=== PATIENT | male | born 1950 | race Caucasian/White ===

== ENCOUNTER 2018-11-17 10:00 | Inpatient (IN) | payer OTHER ==
--- NOTE | 2018-11-17 10:06 | PDOC ---
History of Present Illness - General Chief Complaint: Urinary Problem Stated Complaint: POSS UTI Time Seen by Provider: 11/17/18 10:06 - History of Present Illness Initial Comments: 68yo M with PMH of SULMA SPARROW, hand deformity presenting from [facility] for hypoxia. His aide is at the bedside providing collateral history. When she took his vitals this morning, she noted him to be hypoxic at 88% and a nurse recommended sending him to the ED for further evaluation. Patient is usually more active but has been less so in the past couple days. The aide notes he has been urinating more frequently and may have an infection. She also adds that it was noticed he had a swollen left ankle. The aide notes that he also looks pale. No fevers noted at home. PCP: Dr. Estefany Ward Past History - Past Medical History Allergies/Adverse Reactions: Allergies Allergy/AdvReac Type Severity Reaction Status Date / Time No Known Allergies Allergy Verified 11/21/13 23:09 Home Medications: Ambulatory Orders Cholecalciferol (Vitamin D3) [Vitamin D3] 1,000 unit PO DAILY 11/21/13 Paroxetine HCl [Paxil -] 10 mg PO DAILY 11/21/13 Clindamycin [Cleocin -] 300 mg PO TID #21 capsule 11/22/13 - Suicide/Smoking/Psychosocial Hx Smoking History: Never smoked Review of Systems - Review of Systems Able to Perform ROS?: No (communication inadequate) *Physical Exam - Physical Exam Comments: General: Awake, alert, in no acute distress Head: No signs of trauma Eyes: EOMI, sclera anicteric ENT: Moist mucus membranes Neck: Normal ROM, supple Lungs: Lungs clear, Normal breath sounds Cardio: Regular rhythm, S1 and S2 present Abdomen: Grimacing noted upon palpation of abdomen, most focal to suprapubic area. Distended. No CVA tenderness. Extremities: Webbing of fingers, Distal pulses present. No grimacing noted upon palpation of calves. Left ankle appearing larger than right. SKIN: Warm, Dry, normal turgor Neurologic: Able to follow some commands. ED Treatment Course - LABORATORY CBC & Chemistry Diagram: 11/18/18 06:10 11/18/18 00:25 Medical Decision Making - Medical Decision Making 68yo M with PMH of SULMA SPARROW, hand deformity presenting from [facility] for hypoxia. Patient is febrile, tachycardic, and hypoxic Septic workup ordered 1g Ofirmev 2L NS 11/17/18 10:36 EKG: rate 120, QTc 438, sinus tachycardia Have not been able to get urine sample yet. 11/17/18 11:12 CBC WBC 37.7 K/mm3 (4.0-10.0) H* 11/17/18 10:55 RBC 4.03 M/mm3 (4.00-5.60) 11/17/18 10:55 Hgb 12.0 GM/dL (11.7-16.9) 11/17/18 10:55 Hct 36.4 % (35.4-49) 11/17/18 10:55 MCV 90.3 fl (80-96) 11/17/18 10:55 MCH 29.8 pg (25.7-33.7) 11/17/18 10:55 MCHC 33.0 g/dl (32.0-35.9) 11/17/18 10:55 RDW 13.7 % (11.9-15.9) 11/17/18 10:55 Plt Count 539 K/MM3 (134-434) H 11/17/18 10:55 MPV 7.4 fl (7.5-11.1) L 11/17/18 10:55 Absolute Neuts (auto) 35.8 K/mm3 (1.5-8.0) H 11/17/18 10:55 Neutrophils % 95.0 % (42.8-82.8) H 11/17/18 10:55 Neutrophils % (Manual) 96.0 % (42.8-82.8) H 11/17/18 10:55 Band Neutrophils % 0.0 % 11/17/18 10:55 Lymphocytes % 1.8 % (8-40) L 11/17/18 10:55 Lymphocytes % (Manual) 0.0 % (8-40) L 11/17/18 10:55 Monocytes % 2.9 % (3.8-10.2) L 11/17/18 10:55 Monocytes % (Manual) 4 % (3.8-10.2) 11/17/18 10:55 Eosinophils % 0.0 % (0-4.5) 11/17/18 10:55 Eosinophils % (Manual) 0.0 % (0-4.5) 11/17/18 10:55 Basophils % 0.3 % (0-2.0) 11/17/18 10:55 Basophils % (Manual) 0.0 % (0-2.0) 11/17/18 10:55 Myelocytes % (Man) 0 % (0-2) 11/17/18 10:55 Promyelocytes % (Man) 0 % (0-2) 11/17/18 10:55 Blast Cells % (Manual) 0 % (0-0) 11/17/18 10:55 Nucleated RBC % 0 % (0-0) 11/17/18 10:55 Metamyelocytes 0 % (0-2) 11/17/18 10:55 Hypochromia 0 11/17/18 10:55 Platelet Estimate Increased 11/17/18 10:55 Polychromasia 1+ 11/17/18 10:55 Poikilocytosis 0 11/17/18 10:55 Anisocytosis 1+ 11/17/18 10:55 Microcytosis 1+ 11/17/18 10:55 Macrocytosis 0 11/17/18 10:55 WBC 37.7 with unknown baseline No anemia Vanc, Zosyn 11/17/18 11:35 First lactate 2.5 Chemistries hemolyzed Re-ordered Still have not collected UA 11/17/18 12:54 UA collected via straight cath, foul-smelling and cloudy 11/17/18 14:01 CMP Sodium 129 mmol/L (136-145) L 11/17/18 13:03 Potassium 4.1 mmol/L (3.5-5.1) 11/17/18 13:03 Chloride 96 mmol/L (98-107) L 11/17/18 13:03 Carbon Dioxide 20 mmol/L (21-32) L 11/17/18 13:03 Anion Gap 13 MMOL/L (8-16) 11/17/18 13:03 BUN 62.2 mg/dL (7-18) H 11/17/18 13:03 Creatinine 2.4 mg/dL (0.55-1.3) H 11/17/18 13:03 Est GFR (CKD-EPI)AfAm 31.40 11/17/18 13:03 Est GFR (CKD-EPI)NonAf 27.09 11/17/18 13:03 Random Glucose 147 mg/dL (74-106) H 11/17/18 13:03 Lactic Acid 1.7 mmol/L (0.4-2.0) 11/17/18 13:03 Calcium 8.2 mg/dL (8.5-10.1) L 11/17/18 13:03 Total Bilirubin 1.4 mg/dL (0.2-1) H 11/17/18 13:03 AST 33 U/L (15-37) 11/17/18 13:03 ALT 22 U/L (13-61) 11/17/18 13:03 Alkaline Phosphatase 90 U/L (45-117) 11/17/18 13:03 Troponin I < 0.02 ng/ml (0.00-0.05) 11/17/18 13:03 Total Protein 5.5 g/dl (6.4-8.2) L 11/17/18 13:03 Albumin 2.0 g/dl (3.4-5.0) L 11/17/18 13:03 Lipase 24 U/L (73-393) L 11/17/18 13:03 Hyponatremic Cr=2.4 (unknown baseline) Tpn undetectable Second lactate 1.7 UA positive for infection, 3+ LE, 268 WBC, 279 bacteria 11/17/18 14:03 Duplex negative for DVT: "There is no evidence of deep venous thrombosis within the common, deep and superficial femoral veins, as well as the popliteal and posterior tibial veins. The greater saphenous vein is also patent. These veins are fully compressible, as well. IMPRESSION: No evidence of deep venous thrombosis. " Discussed case with Dr. Hummel who accepted patient for med/surg admission. Placed consult for Dr. Dickinson per her request. 11/17/18 14:10 Bedside US shows significant hydronephrosis bilaterally with r. renal cyst. CTAP ordered without IV contrast given elevation in creatinine. 11/17/18 14:20 Abnormal findings on CTAP: "Comparison: Renal and bladder ultrasound 08/15/2017. Contiguous transaxial images were obtained from the diaphragmatic domes and pubic symphysis without the administration of oral and IV contrast. Sagittal and coronal reconstructions were performed. Study limited by patient condition. Mild perihepatic and splenic ascites. Lungs: Mild scarring and/or atelectatic changes. Small pericardial effusion. Bone: Mild osteopenia, degenerative changes and scoliosis with fusion of both SI joints. Liver: Hepatomegaly. Gallbladder: Distended gallbladder with bile but no calcified stones seen. Biliary tree: Negative. Spleen: Negative. Pancreas: Negative. Adrenals: Adrenal hyperplasia. Kidneys: Bilateral extensive parapelvic cysts. Superimposed hydronephrosis. Also be present. Pelvis: There is a significantly thick walled bladder. There are large cystic structures within the pelvis as suggested on prior ultrasound. Left-sided lesion measured 7.5 x 5.8 cm and currently measures 9.2 x 6.6 cm. The inferior lesion previously measured 7.9 x 6.2 cm and currently 9.3 x 7.5 cm. The right lesion measured 2.2 x 2.1 cm and currently 2.4 x 2.1 cm. A presumed new fluid-filled structure to the right of the thickened right bladder wall with an air-fluid level measures approximately 9.0 x 3.5 cm. Is not clear if it is another cystic structure or dilated loop of bowel. Additional evaluation is needed. It is not clear if they are bladder diverticula or other cystic pelvic lesions. The bladder as well as all of these lesions contain air. This could be related to recent instrumentation (although there is a moderate amount of air) versus emphysematous cystitis or a fistula. Additional evaluation suggested. Bowel: There are thick walled small bowel loops in the midabdomen without obvious obstruction. The right colon is not distended and contains air. The left colon shows moderate wall thickening. There is extraluminal air in the right lateral lower flank which could be associated with the cystic lesion to the right of the bladder and could represent a perforated loop of bowel or other structure. There is also a linear opacity measuring 13 mm in length in the area of these abnormalities and a foreign body cannot be excluded. Other: Hiatal hernia with air. Bilateral inguinal hernias with fat, greater on the left and with fluid on the left. Impression: Study is significantly limited by patient condition. The findings are similar to the prior exam except that the left cystic and inferior lesions are increased in size. There is now a fourth structure adjacent to the bladder on the right which could be another cystic lesion or a distended fluid- filled loop of bowel containing a linear foreign body. Adjacent to this there is extraluminal air in the right flank and in the right pelvis. This would suggest a perforation. Small bowel bowel loops in the midabdomen show wall thickening and wall thickening is seen in the left colon as well although the cecum appears grossly unremarkable. Other findings as above. Clinical correlation advised. " Pages sent to urology and general surgery Discussed case with Dr. Gonzalez who is currently evaluating the patient 11/17/18 17:46 Dr. Gonzalez spoke with Dr. Costello, urologist, who recommended monae placement. Dr. Bruce placed monae which drained 1500cc of turbid urine 11/17/18 18:35 *DC/Admit/Observation/Transfer Diagnosis at time of Disposition: UTI (urinary tract infection) Sepsis Qualifiers: Sepsis type: sepsis due to unspecified organism Qualified Code(s): A41.9 - Sepsis, unspecified organism - Discharge Dispostion Condition at time of disposition: Guarded Decision to Admit order: Yes - Referrals - Patient Instructions - Post Discharge Activity
[2018-11-17 10:09] VITALS: BMI 27.4
[2018-11-17] MEDS ORDERED: ACETAMINOPHEN 1000 MG/100 ML VIAL (NON FORMULARY) IVPB ONE (10:34)
[2018-11-17] MEDS ORDERED: SODIUM CHLORIDE 2,000 ML IV STA (10:34)
[2018-11-17] MEDS ORDERED: ACETAMINOPHEN INJECTION 100 ML IVPB ONE (11:04)
[2018-11-17 11:11] LABS: VENOUS PC02 27.4 mmHg (41-51); VENOUS PH 7.48 (7.31-7.41); VENOUS PO2 49.7 mmHg (30-40)
[2018-11-17 11:18] LABS: BASO % 0.3 % (0-2.0); HEMATOCRIT 36.4 % (35.4-49); LYMPH % 1.8 % (8-40); MCH 29.8 pg (25.7-33.7); MEAN CELL VOLUME 90.3 fl (80-96); MEAN PLT VOLUME 7.4 fl (7.5-11.1); MONO % 2.9 % (3.8-10.2); PLATELET COUNT 539 K/MM3 (134-434); RBC 4.03 M/mm3 (4.00-5.60); RDW 13.7 % (11.9-15.9)
[2018-11-17 11:28] LABS: WHITE BLOOD COUNT 37.7 K/mm3 (4.0-10.0)
[2018-11-17 11:49] LABS: INR 1.54 (0.83-1.09); PROTHROMBIN TIME (PATIENT) 18.2 SEC (9.7-13.0)
[2018-11-17 11:52] LABS: ACTIVATED PTT 29.2 SECONDS (25.2-36.5)
[2018-11-17] MEDS ORDERED: PIPERACILLIN/TAZOB 4.5 GM 4.5 GM in DEXTROSE 5%-WATER 100 ML IVPB ONE (11:55)
[2018-11-17] MEDS ORDERED: VANCOMYCIN 1,000 MG in DEXTROSE 5%-WATER - 250 ML IVPB ONE (11:55)
[2018-11-17] MEDS ORDERED: PIPERACILLIN/TAZOB 4.5 GM 4.5 GM/100 ML BAG IVPB ONE (12:03)
[2018-11-17] MEDS ORDERED: VANCOMYCIN 1 GRAM (PRE-DOCKED) 1,000 MG/250 ML BAG IVPB ONE (12:03)
[2018-11-17 12:40] LABS: ANISOCYTOSIS 1+; MACROCYTOSIS 0; PLATELET ESTIMATE INCREASED
[2018-11-17 13:18] LABS: EPI CELLS 16.1 /HPF (0-5/HPF); HYALINE CASTS 68 /lpf (0-8); PH,URINE 6.5 (5.0-8.0); URINE APPEARANCE TURBID; URINE BACTERIA 279.1 /hpf (NEGATIVE); URINE BILIRUBIN NEGATIVE (NEGATIVE); URINE COLOR YELLOW; URINE GLUCOSE (UA) NEGATIVE (NEGATIVE); URINE KETONE NEGATIVE (NEGATIVE); URINE LEUK ESTERASE 3+ (NEGATIVE); URINE NITRITE NEGATIVE (NEGATIVE); URINE PROTEIN 2+ (NEGATIVE); URINE UROBILINOGEN 0.2 mg/dL (0.2-1.0); URINE WBC 268 /hpf (0-5)
[2018-11-17 13:34] LABS: URINE RBC 29.9 /hpf (0-4)
[2018-11-17 13:35] LABS: YEAST NONE SEEN (NEGATIVE)
[2018-11-17 13:41] LABS: BILIRUBIN,TOTAL 1.4 mg/dL (0.2-1); BLOOD UREA NITROGEN 62.2 mg/dL (7-18); CALCIUM 8.2 mg/dL (8.5-10.1); CREATININE 2.4 mg/dL (0.55-1.3); POTASSIUM 4.1 mmol/L (3.5-5.1); TOT PROT 5.5 g/dl (6.4-8.2)
--- NOTE | 2018-11-17 14:01 | PDOC ---
Documentation entered by Isabel Laura SCRIBE, acting as scribe for Hannah Oscar MD. Hannah Oscar MD: This documentation has been prepared by the scribe, Isabel Laura SCRIBE, under my direction and personally reviewed by me in its entirety. I confirm that the documentation accurately reflects all work, treatment, procedures, and medical decision making performed by me. Attending Attestation - Resident Resident Name: Whit Lee - ED Attending Attestation I have performed the following: I have examined & evaluated the patient, The case was reviewed & discussed with the resident, I agree w/resident's findings & plan, Exceptions are as noted - HPI HPI: 11/17/18 11:44 The patient is a 68-year-old male from [facility], with a past medical history of MR, HLD, and a LT hand deformity, who presents to the ED for hypoxia. Patient's caregiver is at bedside and is providing history. She states that she took his vitals this morning and noted his O2 saturation at 88%. Nurse at the facility prompted her to send to the patient to the ER for further evaluation. She reports that the patient has been less active in the past few days compared to his baseline, has been urinating more frequently, and has new onset of LT ankle swelling. HPI is limited due to patient's clinical condition. Allergies: NKA PCP: Dr. Estefany Ward - Physicial Exam PE: 11/17/18 13:39 agree with resident exam - Medical Decision Making 11/17/18 13:58 68yo M hx MR presents to the ED with lethargy, urinary frequency found to have fever 101, leukocytosis to 37, lacitc 2.5 and UTI Pt covered empirically with vanc/zosyn, given 2L fluids Plan for admission for further IV abx, observation 11/17/18 14:06 Mild bowel dilation during bedside POCUS, +abd distention Will obtain dry CTAP to eval for ileus vs obstruction as wrapping machine tender elevated Case disucssed with Dr. Hummel by Dr. Lee, pt accepted for admission Case discussed in detail with admitting physician including history, physical exam and ancillary studies. Admitting physician has assumed care for the patient, will follow all pending diagnostics and will complete the evaluation and treatment. 11/17/18 16:54 CTAP with possible perforation? Call put out to Dr. Hummel to discuss Will consult surgery and urology
--- NOTE | 2018-11-17 15:24 | EKG ---
Test Reason : Blood Pressure : / mmHG Vent. Rate : 120 BPM Atrial Rate : 120 BPM P-R Int : 096 ms QRS Dur : 080 ms QT Int : 310 ms P-R-T Axes : 068 084 049 degrees QTc Int : 438 ms SINUS TACHYCARDIA WITH SHORT CA WITH PREMATURE ATRIAL COMPLEXES POSSIBLE LEFT ATRIAL ENLARGEMENT BORDERLINE ECG WHEN COMPARED WITH ECG OF 06-APR-2002 09:08, PREMATURE ATRIAL COMPLEXES ARE NOW PRESENT CA INTERVAL HAS DECREASED Confirmed by MD Miguel, Alan ([id number]) on 11/17/2018 3:24:44 PM Referred By: Confirmed By:Alan Rivera MD
--- NOTE | 2018-11-17 17:08 | HP ---
Admitting History and Physical - Primary Care Physician PCP: Estefany Ward - Admission Chief Complaint: sepsis History of Present Illness: ER History - History of Present Illness Initial Comments: 68yo M with PMH of SULMA SPARROW, hand deformity presenting from [facility] for hypoxia. His aide is at the bedside providing collateral history. When she took his vitals this morning, she noted him to be hypoxic at 88% and a nurse recommended sending him to the ED for further evaluation. Patient is usually more active but has been less so in the past couple days. The aide notes he has been urinating more frequently and may have an infection. She also adds that it was noticed he had a swollen left ankle. The aide notes that he also looks pale. No fevers noted at home. PCP: Dr. 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 (severe mental retardation) - Smoking History Smoking history: Never smoked Have you smoked in the past 12 months: No - Alcohol/Substance Use Hx Alcohol Use: No Home Medications - Allergies Allergies/Adverse Reactions: Allergies Allergy/AdvReac Type Severity Reaction Status Date / Time No Known Allergies Allergy Verified 11/21/13 23:09 - Home Medications Home Medications: Ambulatory Orders Cholecalciferol (Vitamin D3) [Vitamin D3] 1,000 unit PO DAILY 11/21/13 Paroxetine HCl [Paxil -] 10 mg PO DAILY 11/21/13 Clindamycin [Cleocin -] 300 mg PO TID #21 capsule 11/22/13 Review of Systems - Review of Systems Constitutional: reports: Chills, Fever, Lethargy Physical Examination Vital Signs: Vital Signs Temperature 100.0 F H 11/17/18 15:20 Pulse Rate 91 H 11/17/18 15:20 Respiratory Rate 18 11/17/18 15:20 Blood Pressure 101/60 11/17/18 15:20 O2 Sat by Pulse Oximetry (%) 93 L 11/17/18 15:20 Constitutional: Yes: Mild Distress Cardiovascular: Yes: Regular Rate and Rhythm, Tachycardia Respiratory: Yes: Diminished Gastrointestinal: Yes: Normal Bowel Sounds, Soft, Tenderness Edema: Yes Labs: CBC, BMP 11/17/18 10:55 11/17/18 13:03 Imaging - Results Chest X-ray: Image Reviewed EKG: Image Reviewed Problem List - Problems (1) Acute renal failure Code(s): N17.9 - ACUTE KIDNEY FAILURE, UNSPECIFIED (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
--- NOTE | 2018-11-17 18:18 | CONSULT ---
Consult Consult Specialty:: General Surgery Referred by:: Whit Lee Reason for Consultation:: CT abnormalities, dilated bowel loop? - History of Present Illness Chief Complaint: pt cannot offer History of Present Illness: 68yo severely mentally retarded M with unknown complete history, resident of a facility, was brought to ER for hypoxia today, increased frequency of urination (?infection) and L ankle swelling. He is unable to offer any history, nor is the aide at bedside able to give much information. History is taken from the chart and his accompanying records. Had a colonoscopy in 2006 apparently. In ER , he was febrile, tachycardic and with low BPs, lowest noted 80s systolic earlier this afternoon. Labs significant for wbc 37, elevated BUN/Cr, lactate 2.5 hydrated down to 1.7, low Na and Cl, bili 1.4, INR 1.5, and straight-cathed UA (prior to CT) positive for UTI (urine reportedly cloudy and foul-smelling). Surgery was asked to evaluate. He is seen and examined in ER holding, with aide present. He is able to position on his back for the exam. He vocalizes occasionally and reacted to pain with palpation of his lower abdomen, but was not verbal. He was initially lying in the position. Per his records, sister Michael Rodgers is his next of kin/decision-maker. Dr. Bruce, my partner, was also present for the exam. - History Source History Provided By: Medical Record, Transfer Record Limitations to Obtaining History: Clinical Condition - Past Medical History OVEN TENDER: Yes: Other (severe mental retardation, hearing loss) Cardio/Vascular: Yes: Mitral Insufficiency Psych: Yes: Anxiety ENT: Yes: Other (hearing loss (uses hearing aids)) Additional Medical History: parapelvic cysts on previous US? - Past Surgical History Past Surgical History: Yes: Colonoscopy (2006) Additional Surgical History: unknown - two right groin scars, one left sided - Alcohol/Substance Use Hx Alcohol Use: No History of Substance Use: reports: None - Smoking History Smoking history: Never smoked Have you smoked in the past 12 months: No - Social History Usual Living Arrangement: Senior Living ADL: Support Services Home Medications - Allergies Allergies/Adverse Reactions: Allergies Allergy/AdvReac Type Severity Reaction Status Date / Time No Known Allergies Allergy Verified 11/21/13 23:09 - Home Medications Home Medications: Ambulatory Orders Cholecalciferol (Vitamin D3) [Vitamin D3] 1,000 unit PO DAILY 11/21/13 Paroxetine HCl [Paxil -] 10 mg PO DAILY 11/21/13 Clindamycin [Cleocin -] 300 mg PO TID #21 capsule 11/22/13 Family Disease History - Family Disease History Family History: Unable to Obtain (pt cannot offer) Review of Systems Unable to obtain ROS, reason: severe MR/pt cannot offer Physical Exam Vital Signs: Vital Signs Temperature 99.9 F H 11/17/18 17:44 Pulse Rate 93 H 11/17/18 17:44 Respiratory Rate 18 11/17/18 17:44 Blood Pressure 102/55 L 11/17/18 17:44 O2 Sat by Pulse Oximetry (%) 92 L 11/17/18 17:44 Constitutional: Yes: Well Nourished, Calm, Mild Distress Eyes: Yes: Conjunctiva Clear, EOM Intact HENT: Yes: Atraumatic. No: Drooling Neck: Yes: Supple, Trachea Midline Cardiovascular: Yes: Tachycardia. No: Pulse Irregular Respiratory: Yes: Regular, CTA Bilaterally, On Nasal O2 Gastrointestinal: Yes: Distention (firm, softer in uppermost abdomen), Hypoactive Bowel Sounds, Tenderness (lower abdomen bilaterally and suprapubic), Other (initially, crepitus palpable along right lateral/lower abdomen/flank; no erythema or skin changes; well-healed scars - 2 in right groin, one in left extending to pubis) ...Rectal Exam: Yes: Deferred Renal/: Yes: Bladder Distention, Polyuria (Tijerina placed by my partner (Dr. Bruce) with 1500 turbid urine output) Extremities: Yes: Deformity (bilateral club hands and feet). No: Cool, Cyanosis Integumentary: No: Jaundice, Rash Neurological: Yes: Alert, Pre-Existing Deficit (severe MR), Other (vocalizes and indicates pain to abdominal palpation as above, not verbal for me) Psychiatric: Yes: Alert. No: Agitated Labs: CBC, BMP 11/17/18 10:55 11/17/18 13:03 CMP Sodium 129 mmol/L (136-145) L 11/17/18 13:03 Potassium 4.1 mmol/L (3.5-5.1) 11/17/18 13:03 Chloride 96 mmol/L (98-107) L 11/17/18 13:03 Carbon Dioxide 20 mmol/L (21-32) L 11/17/18 13:03 Anion Gap 13 MMOL/L (8-16) 11/17/18 13:03 BUN 62.2 mg/dL (7-18) H 11/17/18 13:03 Creatinine 2.4 mg/dL (0.55-1.3) H 11/17/18 13:03 Est GFR (CKD-EPI)AfAm 31.40 11/17/18 13:03 Est GFR (CKD-EPI)NonAf 27.09 11/17/18 13:03 Random Glucose 147 mg/dL (74-106) H 11/17/18 13:03 Lactic Acid 1.7 mmol/L (0.4-2.0) 11/17/18 13:03 Calcium 8.2 mg/dL (8.5-10.1) L 11/17/18 13:03 Total Bilirubin 1.4 mg/dL (0.2-1) H 11/17/18 13:03 AST 33 U/L (15-37) 11/17/18 13:03 ALT 22 U/L (13-61) 11/17/18 13:03 Alkaline Phosphatase 90 U/L (45-117) 11/17/18 13:03 Troponin I < 0.02 ng/ml (0.00-0.05) 11/17/18 13:03 Total Protein 5.5 g/dl (6.4-8.2) L 11/17/18 13:03 Albumin 2.0 g/dl (3.4-5.0) L 11/17/18 13:03 Lipase 24 U/L (73-393) L 11/17/18 13:03 lact down from 2.5 INR, PTT INR 1.54 (0.83-1.09) H 11/17/18 10:55 Urine Test Results Urine Color Yellow 11/17/18 12:53 Urine Appearance Turbid 11/17/18 12:53 Urine pH 6.5 (5.0-8.0) 11/17/18 12:53 Ur Specific [place] 1.010 (1.010-1.035) 11/17/18 12:53 Urine Protein 2+ (NEGATIVE) H 11/17/18 12:53 Urine Glucose (UA) Negative (NEGATIVE) 11/17/18 12:53 Urine Ketones Negative (NEGATIVE) 11/17/18 12:53 Urine Blood 2+ (NEGATIVE) H 11/17/18 12:53 Urine Nitrite Negative (NEGATIVE) 11/17/18 12:53 Urine Bilirubin Negative (NEGATIVE) 11/17/18 12:53 Ur Leukocyte Esterase 3+ (NEGATIVE) H 11/17/18 12:53 UA + bacteria Imaging - Results Cat Scan: Report Reviewed, Image Reviewed (images reviewed - large pelvic cystic structures with air and fluid, air in right flank abdominal wall/RLQ adjacent to right-most cystic structure, thick-walled bladder, hyperdensity/?FB in right cystic structure (??previous stent??), hydronephrosis with parapelvic cysts, few SB loops with mildly thickened palmer, L colon with some wall thickening, R colon ok, no bowel obstruction apparent) Ultrasound: Report Reviewed (from 08/24 - pelvic cystic structures present, CT today with one additional one now noted) Problem List - Problems (1) Emphysematous cystitis Code(s): N30.80 - OTHER CYSTITIS WITHOUT HEMATURIA (2) Abnormal urologic system diagnostic imaging Code(s): R93.49 - ABN RADLGC FINDINGS ON DX IMAGING OF OTHER URINARY ORGANS (3) Urinary retention Code(s): R33.9 - RETENTION OF URINE, UNSPECIFIED (4) Parapelvic renal cyst Code(s): N28.1 - CYST OF KIDNEY, ACQUIRED (5) Severe mental handicap Code(s): F72 - SEVERE INTELLECTUAL DISABILITIES (6) 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 Costello (Uro) by phone agreed with Tijerina placement and IV antibiotics for now he will see the patient need medical optimization - correct electrolytes, IV hydration/resuscitation maintain hemodynamics consider checking PTT, send T&S ID consultation to continue abx (Vanc, Zosyn given in ER) no acute general surgical issues at this time will f/u urology consult and check on pt tomorrow
--- NOTE | 2018-11-17 21:26 | PN ---
Progress Note (short form) - Note Progress Note: ID CONSULT DICTATED
[2018-11-17] MEDS: ACETAMINOPHEN 325 MG TABLET (FP) PO PRN (21:47)
--- NOTE | 2018-11-17 23:36 | CONS ---
DATE OF CONSULTATION: DATE OF DICTATION: 11/17/2018 INFECTIOUS DISEASE CONSULTATION HISTORY OF PRESENT ILLNESS: History was obtained from the chart, as patient cannot give a history secondary to his mental condition. He is a 68-year-old male with history of mental retardation, resident of a facility who was brought to the emergency room after he was noted to be hypoxemic at his facility. According to the notes, he was noted to have an O2 saturation of 88%. In addition, staff had reported that he had not been as interactive as usual and had been more lethargic and somnolent over the past several days. He was also noted to have urinary frequency and left ankle swelling. He was evaluated in the emergency room where a specimen for urine was obtained and was cloudy and foul smelling. He was found to have a fever of 101.1 and a white blood cell count of 37.7 thousand. A CAT scan of the abdomen and pelvis as well as sonogram was obtained. CAT scan of the abdomen showed cystic structures adjacent to the bladder, small bowel loops with wall thickening as well as wall thickening in the left colon. He was empirically treated with Zosyn and admitted to the floor. He was seen in consultation by surgery. At the present time he is awake, however he is unable to offer any history secondary to his mental retardation. No reports of shaking chills, labored breathing, cough, vomiting, or diarrhea. PAST MEDICAL HISTORY: Positive for mental retardation and hyperlipidemia. ALLERGIES: No known allergies. LABORATORY DATA: White count 37.7, with 91 neutrophils, 1 lymphocyte, 2 monocytes. Hematocrit 36.4, platelet count 539. BUN 62, creatinine 2.4, sodium 129, lactic acid 2.5. Chest x-ray negative. Urinalysis 268 white cells. PHYSICAL EXAMINATION: General: On exam, he is awake lying on his left side on the stretcher. He is unable to converse. Vital signs: Temperature 99.9, T-max 101.1, blood pressure 102/55, pulse 93 regular, respirations 18 per minute. HEENT: Sclerae anicteric. Cardiovascular: Heart sounds S1, S2. Lungs: Grossly clear. Abdomen: Soft, there is some mild tenderness to deep palpation. Extremities: Negative for edema. Deformity present of the left hand. IMPRESSION: 1. Fever, marked leukocytosis, rule out sepsis. 2. Urinary tract infection, rule out sepsis secondary to urinary tract focus. 3. Colitis. 4. Lactic acidosis. 5. Azotemia. 6. Hyponatremia. Cultures have been obtained. Continue empiric coverage of gastrointestinal/genitourinary pathogens with Zosyn. Urology evaluation. Further recommendations pending cultures, will follow. Thank you for the kind referral. BRYANT GARDNER M.D. RAPHAEL/[id number]
[2018-11-18] MEDS ORDERED: ACETAMINOPHEN 325 MG TABLET (FP) ONE (00:12)
[2018-11-18] MEDS ORDERED: ACETAMINOPHEN 325 MG TABLET (FP) PO ONE (00:22)
--- NOTE | 2018-11-18 00:30 | HOSP ---
Subjective - Review of Symptoms Events since last encounter: Hospitalist Encounter Notified by RN that the patient is tachycardic, tachypnic and febrile, was asked to evaluate. Subjective: Arrived to bedside, patient is awake, non-verbal baseline, diaphoretic, tachypneic, skin cool to touch. Plan Stat EKG Stat Lactic Acid, CBC, CMP Stat FS Stat ABG Tylenol 325mg po Physical Examination Vital Signs: Vital Signs Temperature 102.8 F H 11/17/18 23:17 Pulse Rate 152 H 11/17/18 23:17 Respiratory Rate 46 H 11/17/18 23:28 Blood Pressure 124/70 11/17/18 23:17 O2 Sat by Pulse Oximetry (%) 94 L 11/17/18 23:28 Constitutional: Yes: Moderate Distress Eyes: Yes: Conjunctiva Clear HENT: Yes: WNL, Atraumatic, Normocephalic Neck: Yes: WNL, Supple, Trachea Midline Cardiovascular: Yes: Tachycardia, S1, S2 Respiratory: Yes: Accessory Muscle Use, Diminished, On Nasal O2, Tachypnea Gastrointestinal: Yes: Distention, Hypoactive Bowel Sounds Renal/: Yes: [place] Present Extremities: Yes: Other (club hands/feet) Edema: No Peripheral Pulses WNL: Yes Neurological: Yes: Alert, Pre-Existing Deficit (MR) Psychiatric: Yes: Alert Labs: CBC, BMP 11/17/18 10:55 11/17/18 13:03 Laboratory Results - last 24 hr 11/17/18 11/17/18 11/17/18 10:55 10:55 10:55 WBC 37.7 H* RBC 4.03 Hgb 12.0 Hct 36.4 MCV 90.3 MCH 29.8 MCHC 33.0 RDW 13.7 Plt Count 539 H MPV 7.4 L Absolute Neuts (auto) 35.8 H Neutrophils % 95.0 H Neutrophils % (Manual) 96.0 H Band Neutrophils % 0.0 Lymphocytes % 1.8 L Lymphocytes % (Manual) 0.0 L Monocytes % 2.9 L Monocytes % (Manual) 4 Eosinophils % 0.0 Eosinophils % (Manual) 0.0 Basophils % 0.3 Basophils % (Manual) 0.0 Myelocytes % (Man) 0 Promyelocytes % (Man) 0 Blast Cells % (Manual) 0 Nucleated RBC % 0 Metamyelocytes 0 Hypochromia 0 Platelet Estimate Increased Polychromasia 1+ Poikilocytosis 0 Anisocytosis 1+ Microcytosis 1+ Macrocytosis 0 PT with INR 18.20 H INR 1.54 H PTT (Actin FS) 29.2 VBG pH 7.48 H POC VBG pCO2 27.4 L POC VBG pO2 49.7 H VBG HCO3 20.0 L VBG O2 Sat (Izzy) 80.4 H VBG Base Excess -2.1 L Sodium Potassium Chloride Carbon Dioxide Anion Gap BUN Creatinine Est GFR (CKD-EPI)AfAm Est GFR (CKD-EPI)NonAf POC Glucometer Random Glucose Lactic Acid Calcium Total Bilirubin AST ALT Alkaline Phosphatase Troponin I Total Protein Albumin Lipase Urine Color Urine Appearance Urine pH Ur Specific [place] Urine Protein Urine Glucose (UA) Urine Ketones Urine Blood Urine Nitrite Urine Bilirubin Urine Urobilinogen Ur Leukocyte Esterase Urine WBC (Auto) Urine RBC (Auto) Urine Casts (Auto) U Pathogenic Cast Auto U Epithel Cells (Auto) Urine Bacteria (Auto) Urine Yeast (Auto) 11/17/18 11/17/18 11/17/18 10:55 10:55 10:55 WBC RBC Hgb Hct MCV MCH MCHC RDW Plt Count MPV Absolute Neuts (auto) Neutrophils % Neutrophils % (Manual) Band Neutrophils % Lymphocytes % Lymphocytes % (Manual) Monocytes % Monocytes % (Manual) Eosinophils % Eosinophils % (Manual) Basophils % Basophils % (Manual) Myelocytes % (Man) Promyelocytes % (Man) Blast Cells % (Manual) Nucleated RBC % Metamyelocytes Hypochromia Platelet Estimate Polychromasia Poikilocytosis Anisocytosis Microcytosis Macrocytosis PT with INR INR PTT (Actin FS) VBG pH POC VBG pCO2 POC VBG pO2 VBG HCO3 VBG O2 Sat (Izzy) VBG Base Excess Sodium Cancelled Potassium Cancelled Chloride Cancelled Carbon Dioxide Cancelled Anion Gap Cancelled BUN Cancelled Creatinine Cancelled Est GFR (CKD-EPI)AfAm Cancelled Est GFR (CKD-EPI)NonAf Cancelled POC Glucometer Random Glucose Cancelled Lactic Acid 2.5 H* Calcium Cancelled Total Bilirubin Cancelled AST Cancelled ALT Cancelled Alkaline Phosphatase Cancelled Troponin I < 0.02 Total Protein Cancelled Albumin Cancelled Lipase Urine Color Urine Appearance Urine pH Ur Specific [place] Urine Protein Urine Glucose (UA) Urine Ketones Urine Blood Urine Nitrite Urine Bilirubin Urine Urobilinogen Ur Leukocyte Esterase Urine WBC (Auto) Urine RBC (Auto) Urine Casts (Auto) U Pathogenic Cast Auto U Epithel Cells (Auto) Urine Bacteria (Auto) Urine Yeast (Auto) 11/17/18 11/17/18 11/17/18 12:53 13:03 13:03 WBC RBC Hgb Hct MCV MCH MCHC RDW Plt Count MPV Absolute Neuts (auto) Neutrophils % Neutrophils % (Manual) Band Neutrophils % Lymphocytes % Lymphocytes % (Manual) Monocytes % Monocytes % (Manual) Eosinophils % Eosinophils % (Manual) Basophils % Basophils % (Manual) Myelocytes % (Man) Promyelocytes % (Man) Blast Cells % (Manual) Nucleated RBC % Metamyelocytes Hypochromia Platelet Estimate Polychromasia Poikilocytosis Anisocytosis Microcytosis Macrocytosis PT with INR INR PTT (Actin FS) VBG pH POC VBG pCO2 POC VBG pO2 VBG HCO3 VBG O2 Sat (Izzy) VBG Base Excess Sodium 129 L Potassium 4.1 Chloride 96 L Carbon Dioxide 20 L Anion Gap 13 BUN 62.2 H Creatinine 2.4 H Est GFR (CKD-EPI)AfAm 31.40 Est GFR (CKD-EPI)NonAf 27.09 POC Glucometer Random Glucose 147 H Lactic Acid 1.7 Calcium 8.2 L Total Bilirubin 1.4 H AST 33 ALT 22 Alkaline Phosphatase 90 Troponin I Total Protein 5.5 L Albumin 2.0 L Lipase Urine Color Yellow Urine Appearance Turbid Urine pH 6.5 Ur Specific [place] 1.010 Urine Protein 2+ H Urine Glucose (UA) Negative Urine Ketones Negative Urine Blood 2+ H Urine Nitrite Negative Urine Bilirubin Negative Urine Urobilinogen 0.2 Ur Leukocyte Esterase 3+ H Urine WBC (Auto) 268 Urine RBC (Auto) 29.9 Urine Casts (Auto) 68 U Pathogenic Cast Auto None seen U Epithel Cells (Auto) 16.1 Urine Bacteria (Auto) 279.1 Urine Yeast (Auto) None seen 11/17/18 11/17/18 11/18/18 13:03 13:03 00:04 WBC RBC Hgb Hct MCV MCH MCHC RDW Plt Count MPV Absolute Neuts (auto) Neutrophils % Neutrophils % (Manual) Band Neutrophils % Lymphocytes % Lymphocytes % (Manual) Monocytes % Monocytes % (Manual) Eosinophils % Eosinophils % (Manual) Basophils % Basophils % (Manual) Myelocytes % (Man) Promyelocytes % (Man) Blast Cells % (Manual) Nucleated RBC % Metamyelocytes Hypochromia Platelet Estimate Polychromasia Poikilocytosis Anisocytosis Microcytosis Macrocytosis PT with INR INR PTT (Actin FS) VBG pH POC VBG pCO2 POC VBG pO2 VBG HCO3 VBG O2 Sat (Izzy) VBG Base Excess Sodium Potassium Chloride Carbon Dioxide Anion Gap BUN Creatinine Est GFR (CKD-EPI)AfAm Est GFR (CKD-EPI)NonAf POC Glucometer 68 Random Glucose Lactic Acid Calcium Total Bilirubin AST ALT Alkaline Phosphatase Troponin I < 0.02 Total Protein Albumin Lipase 24 L Urine Color Urine Appearance Urine pH Ur Specific [place] Urine Protein Urine Glucose (UA) Urine Ketones Urine Blood Urine Nitrite Urine Bilirubin Urine Urobilinogen Ur Leukocyte Esterase Urine WBC (Auto) Urine RBC (Auto) Urine Casts (Auto) U Pathogenic Cast Auto U Epithel Cells (Auto) Urine Bacteria (Auto) Urine Yeast (Auto) Hospitalist Encounter Outcome: EKG -ST 147bpm with PACs, change in rate compared to prior study Lactic Acid 8.0 Na corrected 137 ABG- 7.51/15/170/12 VS- T 100.4, P 114, R 38, BP 83/56, Spo2 91% on 4L NS bolus 2L started, #2 Zosyn infusing Discussed case with Dr. Burr, ICU Resident who will come up to assess the patient Informed Michael Carroll, gamaliel nursing glaze supervisor Will need to transfer ICU vs Tele 02:50- Last BP 100/60, fluids running, will transfer to telemetry when bed available Critical Care Total Critical Care Time (in minutes): 145 Critical Care Statement: The care of this patient involved high complexity decision making to prevent further life threatening deterioration of the patient 's condition and/or to evaluate & treat vital organ system(s) failure or risk of failure.
[2018-11-18 00:48] LABS: BASO % 0.1 % (0-2.0); EOS % 0.1 % (0-4.5); HEMATOCRIT 46.4 % (35.4-49); HEMOGLOBIN 15.6 GM/dL (11.7-16.9); LYMPH % 5.7 % (8-40); MCH 30.2 pg (25.7-33.7); MCHC 33.6 g/dl (32.0-35.9); MEAN CELL VOLUME 89.9 fl (80-96); MEAN PLT VOLUME 7.8 fl (7.5-11.1); MONO % 1.6 % (3.8-10.2); NEUT % 92.5 % (42.8-82.8); PLATELET COUNT 644 K/MM3 (134-434); RBC 5.16 M/mm3 (4.00-5.60); RDW 13.6 % (11.9-15.9); WHITE BLOOD COUNT 7.7 K/mm3 (4.0-10.0)
[2018-11-18 01:00] LABS: ARTERIAL BLD GAS O2 SATURATION 96.7 % (95-98); ARTERIAL BLOOD GAS BASE EXCESS -8.2 meq/l (-2-2); ARTERIAL BLOOD GAS PO2 170 mmHg (80-105); ARTERIAL BLOOD GAS pH 7.51 (7.35-7.45)
[2018-11-18] MEDS ORDERED: PIPERACILLIN/TAZOBACTAM 3.375 GM VIAL IVPB ONE ×2 (01:01→10:40)
[2018-11-18] MEDS ORDERED: DEXTROSE 5%-WATER - 50 ML IVPB ONE ×2 (01:01→10:40)
[2018-11-18 01:09] LABS: BILIRUBIN,TOTAL 1.9 mg/dL (0.2-1); BLOOD UREA NITROGEN 64.3 mg/dL (7-18); CALCIUM 9.1 mg/dL (8.5-10.1); CREATININE 2.5 mg/dL (0.55-1.3); TOT PROT 5.5 g/dl (6.4-8.2)
[2018-11-18 01:10] LABS: ALLENS TEST POSITIVE
[2018-11-18] MEDS ORDERED: SODIUM CHLORIDE 1,000 ML IV STA ×2 (01:33→01:52)
[2018-11-18] MEDS: PIPERACILLIN/TAZOB 3.375 GM 3.375 GM in DEXTROSE 5%-WATER - 50 ML IVPB SCH ×2 (02:00→10:55)
--- NOTE | 2018-11-18 03:03 | CONSULT ---
Consultation: UPDATE: Upon reassessment pt's BP improved to 100's/60's which is likely patient 's baseline given limited mobility status and contractures. Will continue to follow-up through the night but recommend holding off on ICU placement given responsiveness. Recommended starting maintenance fluids given sepsis status after boluses have finished. Discussed with primary team and nursing staff who are in agreement. Please recall if worsening hemodynamics despite fluid resuscitation. REQUESTING PROVIDER: Hospitalist CONSULT SERVICE: ICU resident consult HISTORY OF PRESENT ILLNESS: 68yo M with history severe mental retardation with unknown complete medical history residing from facility who was originally admitted for sepsis 2/ to [facility]. Covering primary team was notified pt was diaphoretic, cool, tachypneic (40 ) and tachycardic (150bpm) and went to assess the pt. Pt at the time was in moderate distress with hypotension and fever. Pt was given Tylenol and was initiated on IVF fluid boluses. Pt previously only received 2LNS in ER up to this point. Stat labs were drawn which resulted in reduction of his leukocytosis (33 --> 7), however ABG resulted in respiratory alkalosis with secondary metabolic acidemia. In addition, lactic acidosis had increased from 1.7 to 8.0. Upon assessment pt cannot provide history/HPI due to MR. Pt vocalizes occassionally however without meaningful speech. Pt had been started on second IVF bolus through recently placed 2nd peripheral line. Pts vitals at this time minimally improved, however not in acute distress at this time. REVIEW OF SYSTEMS: As per HPI PHYSICAL EXAMINATION Vital Signs 11/17/18 11/17/18 11/17/18 21:00 23:17 23:28 Temperature 102.7 F H 102.8 F H Pulse Rate 172 H 152 H Pulse Rate [ Apical] Respiratory 40 H 46 H 46 H Rate Blood Pressure 149/111 H 124/70 Blood Pressure [Right Arm] O2 Sat by Pulse 94 L Oximetry (%) 11/18/18 02:35 Temperature Pulse Rate Pulse Rate [ Apical] Respiratory Rate Blood Pressure 104/68 Blood Pressure [Right Arm] O2 Sat by Pulse Oximetry (%) GENERAL: NAD, awake, alert HEENT: Dry mucosa noted, congenital deformities noted NECK: No JVD LUNGS: Shallow inspirations bilaterally. No wheezes, and no crackles. No accessory muscle use. 96% on 4LNC HEART: Tachycardic with regular rhythm, normal S1 and S2 without murmur ABDOMEN: Soft, NT/ND, no guarding, no rebound : Cloudy dark yellow urine in tubing and collection bag with some sediment noted MUSCULOSKELETAL: Notable hand deformities b/l EXTREMITIES: 1+ distal pulses, cool, cap refill 2-3 seconds. No calf tenderness. No peripheral edema. SKIN: Warm, diaphoretic,no rashes Laboratory Results 11/17/18 11/17/18 11/17/18 10:55 10:55 10:55 WBC 37.7 H* RBC 4.03 Hgb 12.0 Hct 36.4 MCV 90.3 MCH 29.8 MCHC 33.0 RDW 13.7 Plt Count 539 H MPV 7.4 L Absolute Neuts (auto) 35.8 H Neutrophils % 95.0 H Neutrophils % (Manual) 96.0 H Band Neutrophils % 0.0 Lymphocytes % 1.8 L Lymphocytes % (Manual) 0.0 L Monocytes % 2.9 L Monocytes % (Manual) 4 Eosinophils % 0.0 Eosinophils % (Manual) 0.0 Basophils % 0.3 Basophils % (Manual) 0.0 Myelocytes % (Man) 0 Promyelocytes % (Man) 0 Blast Cells % (Manual) 0 Nucleated RBC % 0 Metamyelocytes 0 Hypochromia 0 Platelet Estimate Increased Polychromasia 1+ Poikilocytosis 0 Anisocytosis 1+ Microcytosis 1+ Macrocytosis 0 PT with INR 18.20 H INR 1.54 H PTT (Actin FS) 29.2 Anticoagulation Therapy Puncture Site ABG pH ABG pCO2 at Pt Temp ABG pO2 at Pt Temp ABG HCO3 ABG O2 Sat (Measured) ABG O2 Content ABG Base Excess Leo Test VBG pH 7.48 H POC VBG pCO2 27.4 L POC VBG pO2 49.7 H VBG HCO3 20.0 L VBG O2 Sat (Izzy) 80.4 H VBG Base Excess -2.1 L O2 Delivery Device Oxygen Flow Rate Vent Mode Vent Rate Mechanical Rate Pressure Support Vent Sodium Potassium Chloride Carbon Dioxide Anion Gap BUN Creatinine Est GFR (CKD-EPI)AfAm Est GFR (CKD-EPI)NonAf POC Glucometer Random Glucose Lactic Acid Calcium Total Bilirubin AST ALT Alkaline Phosphatase Troponin I Total Protein Albumin Lipase Urine Color Urine Appearance Urine pH Ur Specific [place] Urine Protein Urine Glucose (UA) Urine Ketones Urine Blood Urine Nitrite Urine Bilirubin Urine Urobilinogen Ur Leukocyte Esterase Urine WBC (Auto) Urine RBC (Auto) Urine Casts (Auto) U Pathogenic Cast Auto U Epithel Cells (Auto) Urine Bacteria (Auto) Urine Yeast (Auto) 11/17/18 12:53 WBC RBC Hgb Hct MCV MCH MCHC RDW Plt Count MPV Absolute Neuts (auto) Neutrophils % Neutrophils % (Manual) Band Neutrophils % Lymphocytes % Lymphocytes % (Manual) Monocytes % Monocytes % (Manual) Eosinophils % Eosinophils % (Manual) Basophils % Basophils % (Manual) Myelocytes % (Man) Promyelocytes % (Man) Blast Cells % (Manual) Nucleated RBC % Metamyelocytes Hypochromia Platelet Estimate Polychromasia Poikilocytosis Anisocytosis Microcytosis Macrocytosis PT with INR INR PTT (Actin FS) Anticoagulation Therapy Puncture Site ABG pH ABG pCO2 at Pt Temp ABG pO2 at Pt Temp ABG HCO3 ABG O2 Sat (Measured) ABG O2 Content ABG Base Excess Leo Test VBG pH POC VBG pCO2 POC VBG pO2 VBG HCO3 VBG O2 Sat (Izzy) VBG Base Excess O2 Delivery Device Oxygen Flow Rate Vent Mode Vent Rate Mechanical Rate Pressure Support Vent Sodium Potassium Chloride Carbon Dioxide Anion Gap BUN Creatinine Est GFR (CKD-EPI)AfAm Est GFR (CKD-EPI)NonAf POC Glucometer Random Glucose Lactic Acid Calcium Total Bilirubin AST ALT Alkaline Phosphatase Troponin I Total Protein Albumin Lipase Urine Color Yellow Urine Appearance Turbid Urine pH 6.5 Ur Specific [place] 1.010 Urine Protein 2+ H Urine Glucose (UA) Negative Urine Ketones Negative Urine Blood 2+ H Urine Nitrite Negative Urine Bilirubin Negative Urine Urobilinogen 0.2 Ur Leukocyte Esterase 3+ H Urine WBC (Auto) 268 Urine RBC (Auto) 29.9 Urine Casts (Auto) 68 U Pathogenic Cast Auto None seen U Epithel Cells (Auto) 16.1 Urine Bacteria (Auto) 279.1 Urine Yeast (Auto) None seen 11/18/18 11/18/18 00:25 00:25 WBC 7.7 RBC 5.16 Hgb 15.6 Hct 46.4 D MCV 89.9 MCH 30.2 MCHC 33.6 RDW 13.6 Plt Count 644 H MPV 7.8 Absolute Neuts (auto) 7.1 Neutrophils % 92.5 H Neutrophils % (Manual) Band Neutrophils % Lymphocytes % 5.7 L D Lymphocytes % (Manual) Monocytes % 1.6 L Monocytes % (Manual) Eosinophils % 0.1 D Eosinophils % (Manual) Basophils % 0.1 Basophils % (Manual) Myelocytes % (Man) Promyelocytes % (Man) Blast Cells % (Manual) Nucleated RBC % 0 Metamyelocytes Hypochromia Platelet Estimate Polychromasia Poikilocytosis Anisocytosis Microcytosis Macrocytosis PT with INR INR PTT (Actin FS) Anticoagulation Therapy Puncture Site ABG pH ABG pCO2 at Pt Temp ABG pO2 at Pt Temp ABG HCO3 ABG O2 Sat (Measured) ABG O2 Content ABG Base Excess Leo Test VBG pH POC VBG pCO2 POC VBG pO2 VBG HCO3 VBG O2 Sat (Izzy) VBG Base Excess O2 Delivery Device Oxygen Flow Rate Vent Mode Vent Rate Mechanical Rate Pressure Support Vent Sodium 137 Potassium 4.0 Chloride 103 Carbon Dioxide 14 L Anion Gap 21 H BUN 64.3 H Creatinine 2.5 H Est GFR (CKD-EPI)AfAm 29.89 Est GFR (CKD-EPI)NonAf 25.79 POC Glucometer Random Glucose 64 L Lactic Acid Calcium 9.1 Total Bilirubin 1.9 H AST 54 H ALT 35 Alkaline Phosphatase 78 Troponin I Total Protein 5.5 L Albumin 2.0 L Lipase Urine Color Urine Appearance Urine pH Ur Specific [place] Urine Protein Urine Glucose (UA) Urine Ketones Urine Blood Urine Nitrite Urine Bilirubin Urine Urobilinogen Ur Leukocyte Esterase Urine WBC (Auto) Urine RBC (Auto) Urine Casts (Auto) U Pathogenic Cast Auto U Epithel Cells (Auto) Urine Bacteria (Auto) Urine Yeast (Auto) 11/18/18 11/18/18 11/18/18 00:25 00:50 01:27 WBC RBC Hgb Hct MCV MCH MCHC RDW Plt Count MPV Absolute Neuts (auto) Neutrophils % Neutrophils % (Manual) Band Neutrophils % Lymphocytes % Lymphocytes % (Manual) Monocytes % Monocytes % (Manual) Eosinophils % Eosinophils % (Manual) Basophils % Basophils % (Manual) Myelocytes % (Man) Promyelocytes % (Man) Blast Cells % (Manual) Nucleated RBC % Metamyelocytes Hypochromia Platelet Estimate Polychromasia Poikilocytosis Anisocytosis Microcytosis Macrocytosis PT with INR INR PTT (Actin FS) Anticoagulation Therapy No Result Required. Puncture Site Right radial ABG pH 7.51 H ABG pCO2 at Pt Temp 15.0 L ABG pO2 at Pt Temp 170 H ABG HCO3 12.0 L ABG O2 Sat (Measured) 96.7 ABG O2 Content 20.1 ABG Base Excess -8.2 L Leo Test Positive VBG pH POC VBG pCO2 POC VBG pO2 VBG HCO3 VBG O2 Sat (Izzy) VBG Base Excess O2 Delivery Device N/c Oxygen Flow Rate 4lpm Vent Mode No Result Required. Vent Rate No Result Required. Mechanical Rate No Result Required. Pressure Support Vent No Result Required. Sodium Potassium Chloride Carbon Dioxide Anion Gap BUN Creatinine Est GFR (CKD-EPI)AfAm Est GFR (CKD-EPI)NonAf POC Glucometer 76 Random Glucose Lactic Acid 8.0 H* Calcium Total Bilirubin AST ALT Alkaline Phosphatase Troponin I Total Protein Albumin Lipase Urine Color Urine Appearance Urine pH Ur Specific [place] Urine Protein Urine Glucose (UA) Urine Ketones Urine Blood Urine Nitrite Urine Bilirubin Urine Urobilinogen Ur Leukocyte Esterase Urine WBC (Auto) Urine RBC (Auto) Urine Casts (Auto) U Pathogenic Cast Auto U Epithel Cells (Auto) Urine Bacteria (Auto) Urine Yeast (Auto) Active Medications Generic Name Dose Route Start Last Admin Trade Name Freq PRN Reason Stop Dose Admin Acetaminophen 650 mg 11/17/18 21:18 11/17/18 21:47 Tylenol - PO 650 mg Q6H PRN Administration FEVER Piperacillin Sod/Tazobactam 50 mls @ 100 mls/hr 11/18/18 02:00 Sod 3.375 gm/ Dextrose IVPB Q8H-IV [facility] Protocol Paroxetine HCl 10 mg 11/18/18 10:00 Paxil - PO DAILY [facility] ASSESSMENT/PLAN: Sepsis 2/2 to UTI Lactic Acidosis Leukocytosis (resolving) Severe mental handicap Functional Quadriplegia --Given pt is exhibiting signs of fluid response. Will reassess in 20 minutes after IVF has further infused. If pt still remains with similar hypotension will transfer to ICU. If BP and tachycardia have improved will recommend transfer to telemetry as primary team's discretion. --Rpt lactic acid after fluid boluses (delta 7.3) --Will start maintenance fluid after boluses with Dextrose given pt has glucose in low normal range --f/u Blood cultures --Continue Tylenol for fevers PRN --Continue Antibiotics per primary and ID teams Will follow in 20 minutes for response and peripherally throughout the night. Case discussed with covering team at bedside
[2018-11-18] MEDS ORDERED: SODIUM CHLORIDE 250 ML IV STA (04:29)
[2018-11-18] MEDS ORDERED: SODIUM CHLORIDE 1,000 ML IV SCH (07:30)
[2018-11-18 07:31] LABS: BASO % 0.1 % (0-2.0); EOS % 0.1 % (0-4.5); HEMATOCRIT 41.9 % (35.4-49); HEMOGLOBIN 14.2 GM/dL (11.7-16.9); LYMPH % 5.6 % (8-40); MCH 30.5 pg (25.7-33.7); MCHC 33.9 g/dl (32.0-35.9); MEAN CELL VOLUME 90.2 fl (80-96); MONO % 2.8 % (3.8-10.2); NEUT % 91.4 % (42.8-82.8); PLATELET COUNT 492 K/MM3 (134-434); RBC 4.65 M/mm3 (4.00-5.60); RDW 13.6 % (11.9-15.9); WHITE BLOOD COUNT 8.7 K/mm3 (4.0-10.0)
[2018-11-18 09:21] LABS: ANISOCYTOSIS 0; MACROCYTOSIS 0; PLATELET ESTIMATE INCREASED
[2018-11-18] MEDS ORDERED: PARoxetine HCL 10 MG TABLET PO SCH (10:00)
[2018-11-18] MEDS: ACETAMINOPHEN 325 MG TABLET (FP) PO PRN (10:56)
[2018-11-18 11:02] LABS: ANISOCYTOSIS 1+; MACROCYTOSIS 0; PLATELET ESTIMATE INCREASED; TOXIC GRANULATION 1+
[2018-11-18 11:11] VITALS: BP 135/78; PULSE 103
[2018-11-18 12:29] VITALS: TEMP 98.7
--- NOTE | 2018-11-18 12:32 | PN ---
Progress Note (short form) - Note Progress Note: has pain in abdomen on palpation otherwise not in distress Vital Signs - 24 hr 11/17/18 11/17/18 11/17/18 13:00 15:13 15:17 Temperature 99.9 F H 100.0 F H Pulse Rate Pulse Rate [ 91 H 92 H Apical] Respiratory 18 18 Rate Blood Pressure Blood Pressure 98/68 86/74 L [Right Arm] O2 Sat by Pulse 91 L 90 L Oximetry (%) 11/17/18 11/17/18 11/17/18 15:20 17:44 19:30 Temperature 100.0 F H 99.9 F H 102.5 F H Pulse Rate 140 H Pulse Rate [ 91 H 93 H Apical] Respiratory 18 18 46 H Rate Blood Pressure 137/71 Blood Pressure 101/60 102/55 L [Right Arm] O2 Sat by Pulse 93 L 92 L Oximetry (%) 11/17/18 11/17/18 11/17/18 21:00 23:17 23:28 Temperature 102.7 F H 102.8 F H Pulse Rate 172 H 152 H Pulse Rate [ Apical] Respiratory 40 H 46 H 46 H Rate Blood Pressure 149/111 H 124/70 Blood Pressure [Right Arm] O2 Sat by Pulse 94 L Oximetry (%) 11/18/18 11/18/18 11/18/18 02:35 03:05 03:17 Temperature 99.4 F Pulse Rate 109 H Pulse Rate [ Apical] Respiratory 42 H 28 H Rate Blood Pressure 104/68 120/76 Blood Pressure [Right Arm] O2 Sat by Pulse 97 Oximetry (%) 11/18/18 11/18/18 11/18/18 04:27 05:04 06:00 Temperature 98.4 F 99.4 F Pulse Rate 103 H 88 112 H Pulse Rate [ Apical] Respiratory 36 H 40 H 37 H Rate Blood Pressure 118/76 118/76 106/64 Blood Pressure [Right Arm] O2 Sat by Pulse Oximetry (%) 11/18/18 11/18/18 06:46 10:00 Temperature 99.9 F H Pulse Rate 94 H 103 H Pulse Rate [ Apical] Respiratory 38 H 28 H Rate Blood Pressure 98/62 135/78 Blood Pressure [Right Arm] O2 Sat by Pulse Oximetry (%) Current Medications Generic Name Dose Route Start Last Admin Trade Name Freq PRN Reason Stop Dose Admin Acetaminophen 650 mg 11/17/18 21:18 11/18/18 10:56 Tylenol - PO 650 mg Q6H PRN Administration FEVER Piperacillin Sod/Tazobactam 50 mls @ 100 mls/hr 11/18/18 02:00 11/18/18 10:55 Sod 3.375 gm/ Dextrose IVPB 100 mls/hr Q8H-IV CLIVE Administration Protocol Sodium Chloride 1,000 mls @ 100 mls/hr 11/18/18 07:30 11/18/18 10:54 Normal Saline - IV 100 mls/hr ASDIR CLIVE Administration Laboratory Results - last 24 hr 11/17/18 11/17/18 11/17/18 10:55 12:53 13:03 WBC RBC Hgb Hct MCV MCH MCHC RDW Plt Count MPV Absolute Neuts (auto) Neutrophils % Neutrophils % (Manual) 96.0 H Band Neutrophils % 0.0 Lymphocytes % Lymphocytes % (Manual) 0.0 L Monocytes % Monocytes % (Manual) 4 Eosinophils % Eosinophils % (Manual) 0.0 Basophils % Basophils % (Manual) 0.0 Myelocytes % (Man) 0 Promyelocytes % (Man) 0 Blast Cells % (Manual) 0 Nucleated RBC % Metamyelocytes 0 Hypochromia 0 Toxic Granulation Platelet Estimate Increased Polychromasia 1+ Poikilocytosis 0 Anisocytosis 1+ Microcytosis 1+ Macrocytosis 0 Anticoagulation Therapy Puncture Site ABG pH ABG pCO2 at Pt Temp ABG pO2 at Pt Temp ABG HCO3 ABG O2 Sat (Measured) ABG O2 Content ABG Base Excess Leo Test O2 Delivery Device Oxygen Flow Rate Vent Mode Vent Rate Mechanical Rate Pressure Support Vent Sodium Potassium Chloride Carbon Dioxide Anion Gap BUN Creatinine Est GFR (CKD-EPI)AfAm Est GFR (CKD-EPI)NonAf POC Glucometer Random Glucose Serum Osmolality Lactic Acid 1.7 Calcium Total Bilirubin AST ALT Alkaline Phosphatase Troponin I Total Protein Albumin Lipase Urine Color Yellow Urine Appearance Turbid Urine pH 6.5 Ur Specific [place] 1.010 Urine Protein 2+ H Urine Glucose (UA) Negative Urine Ketones Negative Urine Blood 2+ H Urine Nitrite Negative Urine Bilirubin Negative Urine Urobilinogen 0.2 Ur Leukocyte Esterase 3+ H Urine WBC (Auto) 268 Urine RBC (Auto) 29.9 Urine Casts (Auto) 68 U Pathogenic Cast Auto None seen U Epithel Cells (Auto) 16.1 Urine Bacteria (Auto) 279.1 Urine Yeast (Auto) None seen Urine Osmolality Ur Random Sodium 11/17/18 11/17/18 11/17/18 13:03 13:03 13:03 WBC RBC Hgb Hct MCV MCH MCHC RDW Plt Count MPV Absolute Neuts (auto) Neutrophils % Neutrophils % (Manual) Band Neutrophils % Lymphocytes % Lymphocytes % (Manual) Monocytes % Monocytes % (Manual) Eosinophils % Eosinophils % (Manual) Basophils % Basophils % (Manual) Myelocytes % (Man) Promyelocytes % (Man) Blast Cells % (Manual) Nucleated RBC % Metamyelocytes Hypochromia Toxic Granulation Platelet Estimate Polychromasia Poikilocytosis Anisocytosis Microcytosis Macrocytosis Anticoagulation Therapy Puncture Site ABG pH ABG pCO2 at Pt Temp ABG pO2 at Pt Temp ABG HCO3 ABG O2 Sat (Measured) ABG O2 Content ABG Base Excess Leo Test O2 Delivery Device Oxygen Flow Rate Vent Mode Vent Rate Mechanical Rate Pressure Support Vent Sodium 129 L Potassium 4.1 Chloride 96 L Carbon Dioxide 20 L Anion Gap 13 BUN 62.2 H Creatinine 2.4 H Est GFR (CKD-EPI)AfAm 31.40 Est GFR (CKD-EPI)NonAf 27.09 POC Glucometer Random Glucose 147 H Serum Osmolality Lactic Acid Calcium 8.2 L Total Bilirubin 1.4 H AST 33 ALT 22 Alkaline Phosphatase 90 Troponin I < 0.02 Total Protein 5.5 L Albumin 2.0 L Lipase 24 L Urine Color Urine Appearance Urine pH Ur Specific [place] Urine Protein Urine Glucose (UA) Urine Ketones Urine Blood Urine Nitrite Urine Bilirubin Urine Urobilinogen Ur Leukocyte Esterase Urine WBC (Auto) Urine RBC (Auto) Urine Casts (Auto) U Pathogenic Cast Auto U Epithel Cells (Auto) Urine Bacteria (Auto) Urine Yeast (Auto) Urine Osmolality Ur Random Sodium 11/18/18 11/18/18 11/18/18 00:04 00:25 00:25 WBC 7.7 RBC 5.16 Hgb 15.6 Hct 46.4 D MCV 89.9 MCH 30.2 MCHC 33.6 RDW 13.6 Plt Count 644 H MPV 7.8 Absolute Neuts (auto) 7.1 Neutrophils % 92.5 H Neutrophils % (Manual) 46.3 D Band Neutrophils % 26.3 Lymphocytes % 5.7 L D Lymphocytes % (Manual) 14.7 D Monocytes % 1.6 L Monocytes % (Manual) 5 Eosinophils % 0.1 D Eosinophils % (Manual) 0.0 Basophils % 0.1 Basophils % (Manual) 0.0 Myelocytes % (Man) 3 H D Promyelocytes % (Man) 0 Blast Cells % (Manual) 0 Nucleated RBC % 0 Metamyelocytes 3 H D Hypochromia 0 Toxic Granulation 1+ Platelet Estimate Increased Polychromasia 1+ Poikilocytosis 1+ Anisocytosis 1+ Microcytosis 1+ Macrocytosis 0 Anticoagulation Therapy Puncture Site ABG pH ABG pCO2 at Pt Temp ABG pO2 at Pt Temp ABG HCO3 ABG O2 Sat (Measured) ABG O2 Content ABG Base Excess Leo Test O2 Delivery Device Oxygen Flow Rate Vent Mode Vent Rate Mechanical Rate Pressure Support Vent Sodium 137 Potassium 4.0 Chloride 103 Carbon Dioxide 14 L Anion Gap 21 H BUN 64.3 H Creatinine 2.5 H Est GFR (CKD-EPI)AfAm 29.89 Est GFR (CKD-EPI)NonAf 25.79 POC Glucometer 68 Random Glucose 64 L Serum Osmolality Lactic Acid Calcium 9.1 Total Bilirubin 1.9 H AST 54 H ALT 35 Alkaline Phosphatase 78 Troponin I Total Protein 5.5 L Albumin 2.0 L Lipase Urine Color Urine Appearance Urine pH Ur Specific [place] Urine Protein Urine Glucose (UA) Urine Ketones Urine Blood Urine Nitrite Urine Bilirubin Urine Urobilinogen Ur Leukocyte Esterase Urine WBC (Auto) Urine RBC (Auto) Urine Casts (Auto) U Pathogenic Cast Auto U Epithel Cells (Auto) Urine Bacteria (Auto) Urine Yeast (Auto) Urine Osmolality Ur Random Sodium 11/18/18 11/18/18 11/18/18 00:25 00:25 00:50 WBC RBC Hgb Hct MCV MCH MCHC RDW Plt Count MPV Absolute Neuts (auto) Neutrophils % Neutrophils % (Manual) Band Neutrophils % Lymphocytes % Lymphocytes % (Manual) Monocytes % Monocytes % (Manual) Eosinophils % Eosinophils % (Manual) Basophils % Basophils % (Manual) Myelocytes % (Man) Promyelocytes % (Man) Blast Cells % (Manual) Nucleated RBC % Metamyelocytes Hypochromia Toxic Granulation Platelet Estimate Polychromasia Poikilocytosis Anisocytosis Microcytosis Macrocytosis Anticoagulation Therapy No Result Required. Puncture Site Right radial ABG pH 7.51 H ABG pCO2 at Pt Temp 15.0 L ABG pO2 at Pt Temp 170 H ABG HCO3 12.0 L ABG O2 Sat (Measured) 96.7 ABG O2 Content 20.1 ABG Base Excess -8.2 L Leo Test Positive O2 Delivery Device N/c Oxygen Flow Rate 4lpm Vent Mode No Result Required. Vent Rate No Result Required. Mechanical Rate No Result Required. Pressure Support Vent No Result Required. Sodium Cancelled Potassium Cancelled Chloride Cancelled Carbon Dioxide Cancelled Anion Gap Cancelled BUN Cancelled Creatinine Cancelled Est GFR (CKD-EPI)AfAm Cancelled Est GFR (CKD-EPI)NonAf Cancelled POC Glucometer Random Glucose Cancelled Serum Osmolality Lactic Acid 8.0 H* Calcium Cancelled Total Bilirubin Cancelled AST Cancelled ALT Cancelled Alkaline Phosphatase Cancelled Troponin I Total Protein Cancelled Albumin Cancelled Lipase Urine Color Urine Appearance Urine pH Ur Specific [place] Urine Protein Urine Glucose (UA) Urine Ketones Urine Blood Urine Nitrite Urine Bilirubin Urine Urobilinogen Ur Leukocyte Esterase Urine WBC (Auto) Urine RBC (Auto) Urine Casts (Auto) U Pathogenic Cast Auto U Epithel Cells (Auto) Urine Bacteria (Auto) Urine Yeast (Auto) Urine Osmolality Ur Random Sodium 11/18/18 11/18/18 11/18/18 01:27 03:23 03:23 WBC RBC Hgb Hct MCV MCH MCHC RDW Plt Count MPV Absolute Neuts (auto) Neutrophils % Neutrophils % (Manual) Band Neutrophils % Lymphocytes % Lymphocytes % (Manual) Monocytes % Monocytes % (Manual) Eosinophils % Eosinophils % (Manual) Basophils % Basophils % (Manual) Myelocytes % (Man) Promyelocytes % (Man) Blast Cells % (Manual) Nucleated RBC % Metamyelocytes Hypochromia Toxic Granulation Platelet Estimate Polychromasia Poikilocytosis Anisocytosis Microcytosis Macrocytosis Anticoagulation Therapy Puncture Site ABG pH ABG pCO2 at Pt Temp ABG pO2 at Pt Temp ABG HCO3 ABG O2 Sat (Measured) ABG O2 Content ABG Base Excess Leo Test O2 Delivery Device Oxygen Flow Rate Vent Mode Vent Rate Mechanical Rate Pressure Support Vent Sodium Potassium Chloride Carbon Dioxide Anion Gap BUN Creatinine Est GFR (CKD-EPI)AfAm Est GFR (CKD-EPI)NonAf POC Glucometer 76 Random Glucose Serum Osmolality Lactic Acid 5.3 H* Calcium Total Bilirubin AST ALT Alkaline Phosphatase Troponin I Total Protein Albumin Lipase Urine Color Urine Appearance Urine pH Ur Specific [place] Urine Protein Urine Glucose (UA) Urine Ketones Urine Blood Urine Nitrite Urine Bilirubin Urine Urobilinogen Ur Leukocyte Esterase Urine WBC (Auto) Urine RBC (Auto) Urine Casts (Auto) U Pathogenic Cast Auto U Epithel Cells (Auto) Urine Bacteria (Auto) Urine Yeast (Auto) Urine Osmolality Ur Random Sodium 59 11/18/18 11/18/18 11/18/18 03:23 06:10 06:10 WBC 8.7 RBC 4.65 Hgb 14.2 Hct 41.9 MCV 90.2 MCH 30.5 MCHC 33.9 RDW 13.6 Plt Count 492 H D MPV 8.0 Absolute Neuts (auto) 7.9 Neutrophils % 91.4 H Neutrophils % (Manual) 64.4 D Band Neutrophils % 14.8 Lymphocytes % 5.6 L Lymphocytes % (Manual) 8.9 D Monocytes % 2.8 L Monocytes % (Manual) 4 Eosinophils % 0.1 Eosinophils % (Manual) 0.0 Basophils % 0.1 Basophils % (Manual) 0.0 Myelocytes % (Man) 1 D Promyelocytes % (Man) 0 Blast Cells % (Manual) 0 Nucleated RBC % 0 Metamyelocytes 5 H D Hypochromia 0 Toxic Granulation Platelet Estimate Increased Polychromasia 0 Poikilocytosis 0 Anisocytosis 0 Microcytosis 0 Macrocytosis 0 Anticoagulation Therapy Puncture Site ABG pH ABG pCO2 at Pt Temp ABG pO2 at Pt Temp ABG HCO3 ABG O2 Sat (Measured) ABG O2 Content ABG Base Excess Leo Test O2 Delivery Device Oxygen Flow Rate Vent Mode Vent Rate Mechanical Rate Pressure Support Vent Sodium Potassium Chloride Carbon Dioxide Anion Gap BUN Creatinine Est GFR (CKD-EPI)AfAm Est GFR (CKD-EPI)NonAf POC Glucometer Random Glucose Serum Osmolality 295 Lactic Acid Calcium Total Bilirubin AST ALT Alkaline Phosphatase Troponin I Total Protein Albumin Lipase Urine Color Urine Appearance Urine pH Ur Specific [place] Urine Protein Urine Glucose (UA) Urine Ketones Urine Blood Urine Nitrite Urine Bilirubin Urine Urobilinogen Ur Leukocyte Esterase Urine WBC (Auto) Urine RBC (Auto) Urine Casts (Auto) U Pathogenic Cast Auto U Epithel Cells (Auto) Urine Bacteria (Auto) Urine Yeast (Auto) Urine Osmolality 331 Ur Random Sodium 11/18/18 06:10 WBC RBC Hgb Hct MCV MCH MCHC RDW Plt Count MPV Absolute Neuts (auto) Neutrophils % Neutrophils % (Manual) Band Neutrophils % Lymphocytes % Lymphocytes % (Manual) Monocytes % Monocytes % (Manual) Eosinophils % Eosinophils % (Manual) Basophils % Basophils % (Manual) Myelocytes % (Man) Promyelocytes % (Man) Blast Cells % (Manual) Nucleated RBC % Metamyelocytes Hypochromia Toxic Granulation Platelet Estimate Polychromasia Poikilocytosis Anisocytosis Microcytosis Macrocytosis Anticoagulation Therapy Puncture Site ABG pH ABG pCO2 at Pt Temp ABG pO2 at Pt Temp ABG HCO3 ABG O2 Sat (Measured) ABG O2 Content ABG Base Excess Leo Test O2 Delivery Device Oxygen Flow Rate Vent Mode Vent Rate Mechanical Rate Pressure Support Vent Sodium Potassium Chloride Carbon Dioxide Anion Gap BUN Creatinine Est GFR (CKD-EPI)AfAm Est GFR (CKD-EPI)NonAf POC Glucometer Random Glucose Serum Osmolality Lactic Acid 4.2 H* Calcium Total Bilirubin AST ALT Alkaline Phosphatase Troponin I Total Protein Albumin Lipase Urine Color Urine Appearance Urine pH Ur Specific [place] Urine Protein Urine Glucose (UA) Urine Ketones Urine Blood Urine Nitrite Urine Bilirubin Urine Urobilinogen Ur Leukocyte Esterase Urine WBC (Auto) Urine RBC (Auto) Urine Casts (Auto) U Pathogenic Cast Auto U Epithel Cells (Auto) Urine Bacteria (Auto) Urine Yeast (Auto) Urine Osmolality Ur Random Sodium S1 S2 RRR Lungs decreased Abd- soft, tender+ all areas, BS+ leg edema left PLAN Continue with iv antibiotics iv fluids eval regarding foreign body next to bladder, ?fistula surgical eval noted monae+ lactic acid is elevated but decreasing dc paxil change diet to liquids for now Problem List - Problems (1) Sepsis Code(s): A41.9 - SEPSIS, UNSPECIFIED ORGANISM (2) Sepsis associated hypotension Code(s): A41.9 - SEPSIS, UNSPECIFIED ORGANISM; I95.9 - HYPOTENSION, UNSPECIFIED (3) UTI (urinary tract infection) Code(s): N39.0 - URINARY TRACT INFECTION, SITE NOT SPECIFIED (4) Acute renal failure Code(s): N17.9 - ACUTE KIDNEY FAILURE, UNSPECIFIED (5) Severe mental handicap Code(s): F72 - SEVERE INTELLECTUAL DISABILITIES (6) Urinary retention Code(s): R33.9 - RETENTION OF URINE, UNSPECIFIED
--- NOTE | 2018-11-18 12:52 | CONSULT ---
Consult Consult Specialty:: Nephrology Reason for Consultation:: wendie - History of Present Illness Chief Complaint: sent in for hypoxia History of Present Illness: Pt is a 68 year old male with pmhx of developemental delay, HLD< and hand deformities who was sent in for [facility] for hypoxia. He is unable to give history. He was found to be in renal failure and found to have lactic acidosis and I was called to evaluate him. His pulse ox was found to be down to 88 percent. He was also noted to be less active. - History Source History Provided By: Medical Record - Past Medical History BODY BUMPER: Yes: Other (severe mental retardation, hearing loss) Cardio/Vascular: Yes: Mitral Insufficiency Psych: Yes: Anxiety ENT: Yes: Other (hearing loss (uses hearing aids)) Additional Medical History: parapelvic cysts on previous US? - Past Surgical History Past Surgical History: Yes: Colonoscopy (2006) Additional Surgical History: unknown - two right groin scars, one left sided - Alcohol/Substance Use Hx Alcohol Use: No History of Substance Use: reports: None - Smoking History Smoking history: Never smoked Have you smoked in the past 12 months: No - Social History Usual Living Arrangement: [facility] ADL: Support Services Home Medications - Allergies Allergies/Adverse Reactions: Allergies Allergy/AdvReac Type Severity Reaction Status Date / Time No Known Allergies Allergy Verified 11/21/13 23:09 - Home Medications Home Medications: Ambulatory Orders Cholecalciferol (Vitamin D3) [Vitamin D3] 1,000 unit PO DAILY 11/21/13 Paroxetine HCl [Paxil -] 10 mg PO DAILY 11/21/13 Clindamycin [Cleocin -] 300 mg PO TID #21 capsule 11/22/13 Family Disease History - Family Disease History Family History: Unable to Obtain Review of Systems Unable to obtain ROS, reason: not verbal Findings/Remarks: developmental delay Physical Exam Vital Signs: Vital Signs Temperature 98.7 F 11/18/18 12:28 Pulse Rate 103 H 11/18/18 10:00 Respiratory Rate 28 H 11/18/18 10:00 Blood Pressure 135/78 11/18/18 10:00 O2 Sat by Pulse Oximetry (%) 97 11/18/18 03:17 Constitutional: Yes: Mild Distress Eyes: Yes: Conjunctiva Clear HENT: Yes: Atraumatic Cardiovascular: Yes: S1, S2 Respiratory: Yes: On Nasal O2 Gastrointestinal: Yes: Soft Renal/: Yes: [place] Present Extremities: Yes: Other (bilateral hand deformity) Neurological: Yes: Pre-Existing Deficit, Other (awake) Labs: CBC, BMP 11/18/18 06:10 11/18/18 00:25 Selected Entries 11/17/18 11/17/18 11/18/18 19:30 21:00 02:35 Blood Pressure 137/71 149/111 H 104/68 11/18/18 10:00 Blood Pressure 135/78 Laboratory Tests 11/17/18 11/17/18 11/18/18 10:55 13:03 00:25 WBC 37.7 H* Creatinine 2.4 H 2.5 H Lactic Acid 11/18/18 11/18/18 11/18/18 00:25 00:25 03:23 WBC 7.7 Creatinine Lactic Acid 8.0 H* 5.3 H* 11/18/18 11/18/18 06:10 06:10 WBC 8.7 Creatinine Lactic Acid 4.2 H* Imaging - Results Chest X-ray: Report Reviewed Problem List - Problems (1) Lactic acid acidosis Code(s): E87.2 - ACIDOSIS (2) Acute renal failure Code(s): N17.9 - ACUTE KIDNEY FAILURE, UNSPECIFIED (3) Sepsis Code(s): A41.9 - SEPSIS, UNSPECIFIED ORGANISM (4) Urinary retention Code(s): R33.9 - RETENTION OF URINE, UNSPECIFIED Assessment/Plan Current Medications Generic Name Dose Route Start Last Admin Trade Name Freq PRN Reason Stop Dose Admin Acetaminophen 650 mg 11/17/18 21:18 11/18/18 10:56 Tylenol - PO 650 mg Q6H PRN Administration FEVER Piperacillin Sod/Tazobactam 50 mls @ 100 mls/hr 11/18/18 02:00 11/18/18 10:55 Sod 3.375 gm/ Dextrose IVPB 100 mls/hr Q8H-IV CLIVE Administration Protocol Sodium Chloride 1,000 mls @ 100 mls/hr 11/18/18 07:30 11/18/18 10:54 Normal Saline - IV 100 mls/hr ASDIR CLIVE Administration Microbiology 11/17/18 12:53 Urine - Urine Clean Catch Urine Culture - Preliminary Lactose Fermenting Neg Bacilli 11/17/18 11:00 Blood - Peripheral Venous Blood Culture - Preliminary NO GROWTH OBTAINED AFTER 24 HOURS, INCUBATION TO CONTINUE FOR 4 DAYS. 11/17/18 10:55 Blood - Peripheral Venous Blood Culture - Preliminary NO GROWTH OBTAINED AFTER 24 HOURS, INCUBATION TO CONTINUE FOR 4 DAYS. Impression 1. WENDIE 2. lactic acidosis 3. sepsis 4. developemental delay 5. UTI Plan - change fluids to 1/2 ns with 75 meq of kcl - cont to monitor renal function - monitor bicarb - follow cultures - cont abx - monitor urine output - check renal ultrasound
[2018-11-18] MEDS ORDERED: SODIUM CHLORIDE 0.45% 1,000 ML with SODIUM BICARBONATE 8.4% - 75 MEQ IV SCH ×2 (13:00)
--- NOTE | 2018-11-18 13:38 | RAPID ---
Physical Examination Vital Signs: Vital Signs Temperature 98.7 F 11/18/18 12:28 Pulse Rate 103 H 11/18/18 10:00 Respiratory Rate 28 H 11/18/18 10:00 Blood Pressure 135/78 11/18/18 10:00 O2 Sat by Pulse Oximetry (%) 97 11/18/18 03:17 Findings/Remarks: Code 99 called to unit. Pt found unresponsive, pulseness. Compressions were started. Epi given x5, bicarb given x2, calcium gluconate given x1. Please refer to code sheet for details. Labs: CBC, BMP 11/18/18 06:10 11/18/18 00:25
--- NOTE | 2018-11-18 13:59 | PN ---
Progress Note (short form) - Note Progress Note: Responded to code. Upon arrival pt unresponsive, apneic, undergoing chest compressions. Pt with bilious and particulate matter passively spilling from mouth. After suctioning, successful intubation after single atraumatic attempt. ETCO2 confirmed and ETT secured. Pt remains pulseless, compressions and vasoactive drugs continue.
--- NOTE | 2018-11-18 14:45 | PN ---
Progress Note (short form) - Note Progress Note: Pt coded today Pronounced at 1:50pm spoke with pt's senior case manager, Nurse informed sister's spoke with ME -- denied case-- i
--- NOTE | 2018-11-19 11:47 | EKG ---
Test Reason : Blood Pressure : / mmHG Vent. Rate : 147 BPM Atrial Rate : 147 BPM P-R Int : 134 ms QRS Dur : 068 ms QT Int : 268 ms P-R-T Axes : 083 107 052 degrees QTc Int : 419 ms POOR DATA QUALITY, INTERPRETATION MAY BE ADVERSELY AFFECTED SINUS TACHYCARDIA WITH PREMATURE ATRIAL COMPLEXES RIGHTWARD AXIS BORDERLINE ECG WHEN COMPARED WITH ECG OF 17-NOV-2018 10:19, CT INTERVAL HAS INCREASED Confirmed by EVERTON SANCHEZ, LARON ([id number]) on 11/19/2018 11:47:13 AM Referred By: Confirmed By:LARON TOSCANO MD
== END 2018-11-18 15:48 | disposition expired | DRG 871 ==
LOC: JER 10:00 → JERBED 13:39 → J6S 18:27
PROVIDERS: ADMIT Internal Medicine; ATTEND Internal Medicine
PROC: 5A1935Z Respiratory Ventilation, Less than 24 Consecutive Hours (ICD-10-PCS; principal; 2018-11-17)
PROC: 0BH17EZ Insertion of Endotracheal Airway into Trachea, Via Natural or Artificial Opening (ICD-10-PCS; 2018-11-17)
DX: A41.9 Sepsis, unspecified organism (principal); R53.2 Functional quadriplegia; N17.9 Acute kidney failure, unspecified; E87.2 Acidosis; N39.0 Urinary tract infection, site not specified; F72 Severe intellectual disabilities; E87.1 Hypo-osmolality and hyponatremia; E87.3 Alkalosis; Q66.0 Congenital talipes equinovarus; I95.9 Hypotension, unspecified; R33.9 Retention of urine, unspecified; D72.829 Elevated white blood cell count, unspecified; R00.0 Tachycardia, unspecified; E78.5 Hyperlipidemia, unspecified
CPT/HCPCS: 36415; 36600; 71045-TC-FY; 74176-TC; 80053; 81003; 82803; 82962; 83605; 83690; 83930; 83935; 84300; 84484; 85025; 85610; 85730; 87040; 87086; 87186; 93005; 93010; 93971-TC; 99285-25; J0131; J7030